=== PATIENT | male | born 1985 | race Caucasian/White ===

== ENCOUNTER 2020-06-16 11:27 | Emergency (ER) | payer SELFPAY ==
[~2020-06-16] VITALS: Ht 182.9 cm; Wt 81.6 kg
[2020-06-16] MEDS ORDERED: PANTOPRAZOLE SODIUM 40 MG TABLET.DR PO ONE ×2 (11:45→11:47)
[2020-06-16] MEDS ORDERED: LIDOCAINE VISCUS 2% 15 ML UDC MM ONE (11:45)
[2020-06-16] MEDS ORDERED: MAG HYDROX/AL HYDROX/SIMETH 30 ML LIQUID UDC PO ONE (11:45)
--- NOTE | 2020-06-16 11:45 | NUR ---
at bedside to assess pt.
--- NOTE | 2020-06-16 11:45 | NUR ---
pt is a 34yo M who came in walking into ER complaining of severe abdominal pain. pt noted with verbal complaints of pain as well as facial grimacing and moaning. A&Ox4. (R) forearm IV inserted. meds given as ordered.
[2020-06-16] MEDS ORDERED: MAG HYDROX/AL HYDROX/SIMETH 30 ML LIQUID UDC ONE (11:49)
[2020-06-16] MEDS ORDERED: LIDOCAINE VISCUS 2% 15 ML UDC ONE ×2 (11:50→12:07)
[2020-06-16] MEDS ORDERED: MORPHINE SULFATE 4 MG/1 ML DISP.SYRIN IV ONE (12:00)
[2020-06-16] MEDS ORDERED: ONDANSETRON 4 MG/2 ML VIAL IV ONE (12:00)
[2020-06-16 12:03] LABS: BASOPHILS % (AUTO) 0.3 % (0.0-2.0); EOSINOPHILS % (AUTO) 0.2 % (0.0-7.0); HEMATOCRIT 44.5 % (36.7-47.1); HEMOGLOBIN 15.5 g/dL (12.5-16.3); LYMPHOCYTES # (AUTO) 0.7 K/uL (20.0-40.0); LYMPHOCYTES % (AUTO) 6.3 % (20.5-51.5); MEAN CORPUSCULAR HEMOGLOBIN 31.3 uug (23.8-33.4); MEAN CORPUSCULAR HGB CONC 35 g/dL (32.5-36.3); MONOCYTES # (AUTO) 0.3 K/uL (2.0-10.0); MONOCYTES % (AUTO) 2.5 % (0.0-11.0); NEUTROPHILS # (AUTO) 10.3 K/uL (1.8-8.9); NEUTROPHILS % (AUTO) 90.7 % (38.5-71.5); PLATELET COUNT (AUTO) 194 K/uL (152-348); RED BLOOD CELL COUNT(AUTO) 4.95 MIL/uL (4.06-5.63); WHITE BLOOD COUNT (AUTO) 11.3 K/uL (3.6-10.2)
[2020-06-16 12:11] LABS: CREATININE 1.2 mg/dL (0.6-1.3); POTASSIUM 4.3 mmol/L (3.5-5.1)
--- NOTE | 2020-06-16 12:15 | NUR ---
pt noted with nausea and x1 episode of vomiting. IV zofran given as ordered
[2020-06-16 12:19] LABS: BILIRUBIN,DIRECT 0.3 mg/dL (0.0-0.2); BILIRUBIN,TOTAL 2.3 mg/dL (0.2-1.0); TOTAL PROTEIN, SERUM 8.1 g/dL (6.4-8.2)
--- NOTE | 2020-06-16 12:27 | NUR ---
pt verbalized reduction in pain. resting more comfortably in the gurney.
[2020-06-16] MEDS ORDERED: IV NORMAL SALINE 1000 ML BAG IV ONE (13:00)
[2020-06-16 13:25] LABS: *BILIRUBIN,URIN NEGATIVE (NEGATIVE); *BLOOD, URINE NEGATIVE (NEGATIVE); *CLARITY,URINE SLIGHTLY CLOUDY (CLEAR); *COLOR,URINE YELLOW (YELLOW); *KETONES,URINE 3+ (NEGATIVE); *UROBILINOGEN,URINE 0.2 E.U./dl (NORMAL); LEUKOCYTE ESTERASE ,URINE NEGATIVE (NEGATIVE); NITRITE, URINE NEGATIVE (NEGATIVE); UGLUCOSE NEGATIVE (NEGATIVE)
[2020-06-16] MEDS ORDERED: OMEP20TA20 PO (13:33)
[2020-06-16] MEDS ORDERED: ONDA4TAB5 PO (13:33)
[2020-06-16] MEDS ORDERED: ONDA8TAB13 PO (13:33)
--- NOTE | 2020-06-16 13:45 | NUR ---
Patient discharged to home in stable condition. verbalized feeing better and reduction in pain. Written and verbal after care instructions given. Patient verbalizes understanding of instructions. Stressed follow up or return to ER for worsening s/s. prescription given. pt ambulatory.
[2020-06-16 13:51] VITALS: BP 120/90
[2020-06-16 19:16] LABS: RBC,URINE 0-3 /HPF (0-3); WBC,URINE 0-3 /HPF (0-3)
[2020-06-16 19:17] LABS: BACTERIA,URINE MANY /HPF (NONE SEEN); SQUAMOUS EPITHELIAL CELL,UR FEW /HPF (NONE SEEN); URINE AMORPHOUS URATE MANY /HPF
[2020-06-17] MEDS ORDERED: CIPR-262 PO (11:32)
== END 2020-06-16 13:52 | disposition home or self-care (01) ==
LOC: ER 11:29
DX: R10.13 Epigastric pain (principal); K29.70 Gastritis, unspecified, without bleeding; R94.5 Abnormal results of liver function studies
CPT/HCPCS: 36415; 76705; 80048; 80076; 81001; 83690; 85025; 87086; 93005; 96361; 96374; 96375; 99284; J2270; A4663

== ENCOUNTER 2020-06-16 18:13 | Inpatient (IN) | payer SELFPAY ==
[~2020-06-16] VITALS: Ht 182.9 cm; Wt 81.0 kg
[~2020-06-16 18:13] MED LIST: OMEP20TA20 PO; ONDA4TAB5 PO; ONDA8TAB13 PO
[2020-06-16] MEDS ORDERED: ONDANSETRON 4 MG/2 ML VIAL IV ONE ×3 (18:30→22:00)
[2020-06-16] MEDS ORDERED: MORPHINE SULFATE 2 MG/1 ML DISP.SYRIN IV ONE (18:30)
[2020-06-16] MEDS ORDERED: IV NORMAL SALINE 1000 ML BAG IV ONE (18:30)
--- NOTE | 2020-06-16 18:35 | NUR ---
pt is a 34M complaining of severe abdominal pain. pt was here earlier during the day and had verbalized relief of pain and was discharged. however, pt called and stated the pain is back and its severe, pt was then told to return to the ER. (L) forearm 20g IV placed. given IV morphine and Zofran as ordered
[2020-06-16] MEDS ORDERED: MORPHINE SULFATE 4 MG/1 ML DISP.SYRIN ONE (18:36)
[2020-06-16] MEDS ORDERED: ONDANSETRON 4 MG/2 ML VIAL ONE ×2 (18:37→18:55)
--- NOTE | 2020-06-16 18:42 | NUR ---
pt taken down to CT at this time
[2020-06-16] MEDS ORDERED: HYDROMORPHONE 1 MG/1 ML DISP.SYRIN IV ONE ×2 (18:45→22:00)
[2020-06-16 18:47] LABS: BASOPHILS % (AUTO) 0.2 % (0.0-2.0); EOSINOPHILS % (AUTO) 0.1 % (0.0-7.0); HEMATOCRIT 43.1 % (36.7-47.1); HEMOGLOBIN 15.1 g/dL (12.5-16.3); LYMPHOCYTES # (AUTO) 0.8 K/uL (20.0-40.0); LYMPHOCYTES % (AUTO) 7.2 % (20.5-51.5); MEAN CORPUSCULAR HGB CONC 35 g/dL (32.5-36.3); MEAN CORPUSCULAR VOLUME 88.1 fL (73.0-96.2); MONOCYTES # (AUTO) 0.3 K/uL (2.0-10.0); NEUTROPHILS # (AUTO) 10.2 K/uL (1.8-8.9); NEUTROPHILS % (AUTO) 89.5 % (38.5-71.5); PLATELET COUNT (AUTO) 212 K/uL (152-348); RED BLOOD CELL COUNT(AUTO) 4.89 MIL/uL (4.06-5.63); WHITE BLOOD COUNT (AUTO) 11.4 K/uL (3.6-10.2)
[2020-06-16] MEDS ORDERED: HYDROMORPHONE 1 MG/1 ML DISP.SYRIN ONE ×2 (18:55→21:59)
--- NOTE | 2020-06-16 18:55 | NUR ---
pt returned frm CT scan. Dr. Garza ordered IV Dilaudid and IV ZOfran. informed MD that pt just got his IV Morphine and IV ZOfran ordered by Dr. Damian. Per , okay to give
[2020-06-16 18:59] LABS: CREATININE 1.1 mg/dL (0.6-1.3)
--- NOTE | 2020-06-16 19:04 | NUR ---
pt endorsed to bottle assembler RN. MD currently at bedside explaining CT results. VSS
--- NOTE | 2020-06-16 19:05 | NUR ---
Received report from Day shift nurse. Patient currenty resting comfortably on the gurney, no complaints of pain, no signs of distress. Sen by Dr. Garza and advised patient that he is going to be admitted for observation. Patient verbalized understanding.
[2020-06-16] MEDS ORDERED: ACETAMINOPHEN 650 MG SUPP.RECT RC PRN (21:30)
[2020-06-16] MEDS ORDERED: ONDANSETRON 4 MG/2 ML VIAL IV PRN (21:30)
[2020-06-16 22:00] VITALS: BP 109/58
[2020-06-16] MEDS ORDERED: PIPERACILLIN SODIUM/TAZOBACTAM 3.375 G in IV DEXTROSE 5% 50 ML IV SCH (22:00)
--- NOTE | 2020-06-16 22:35 | NUR ---
Patient Tranfered via gurney to 3rd floor Medical surgical status room 325, care of SIRI Angeles. Full hand off report given, Attending physician Dr. Nathan Banuelos. All belongings documented and transferred with the patient. Patient in stable condition at the time of transer, all VS stable, no SOB or signs of distress.
[2020-06-16] MEDS: IV D5 1/2 NS 1000 ML 1,000 ML IV PRN (22:45)
[2020-06-16] MEDS ORDERED: PIPERACILLIN/TAZOBACTAM/D5W 100 ML IV ONE (23:05)
[2020-06-16] MEDS ORDERED: PIPERACILLIN/TAZOBACTAM/D5W 50 ML IV ONE (23:08)
[2020-06-16] MEDS: PIPERACILLIN SODIUM/TAZOBACTAM 3.375 G in IV DEXTROSE 5% 50 ML IV SCH (23:22)
[2020-06-17] MEDS: MORPHINE SULFATE 2 MG/1 ML DISP.SYRIN IV PRN ×2 (01:16→12:43)
[2020-06-17 04:21] VITALS: BP 108/53
[2020-06-17] MEDS: PIPERACILLIN SODIUM/TAZOBACTAM 3.375 G in IV DEXTROSE 5% 50 ML IV SCH (05:38)
--- NOTE | 2020-06-17 06:49 | NUR ---
Pt slept throughout the night. Admitted at 2230H. Assessment complete and all belongings accounted for. Denies pain or SOB at this time. IV site patent. Maintained NPO status. Bed is locked and in lowest position, no other issues or concerns at this time. Will endorse to day shift
[2020-06-17 07:09] LABS: BASOPHILS # (AUTO) 0.1 K/uL (0.0-8.0); BASOPHILS % (AUTO) 0.7 % (0.0-2.0); EOSINOPHILS # (AUTO) 0.1 K/uL (0.0-0.7); EOSINOPHILS % (AUTO) 0.7 % (0.0-7.0); HEMATOCRIT 37.8 % (36.7-47.1); HEMOGLOBIN 13.3 g/dL (12.5-16.3); LYMPHOCYTES # (AUTO) 1.6 K/uL (20.0-40.0); LYMPHOCYTES % (AUTO) 18.4 % (20.5-51.5); MEAN CORPUSCULAR HEMOGLOBIN 31.4 uug (23.8-33.4); MEAN CORPUSCULAR HGB CONC 35 g/dL (32.5-36.3); MEAN CORPUSCULAR VOLUME 89.4 fL (73.0-96.2); MONOCYTES # (AUTO) 0.6 K/uL (2.0-10.0); MONOCYTES % (AUTO) 6.4 % (0.0-11.0); NEUTROPHILS # (AUTO) 6.5 K/uL (1.8-8.9); NEUTROPHILS % (AUTO) 73.8 % (38.5-71.5); PLATELET COUNT (AUTO) 181 K/uL (152-348); RED BLOOD CELL COUNT(AUTO) 4.23 MIL/uL (4.06-5.63); WHITE BLOOD COUNT (AUTO) 8.8 K/uL (3.6-10.2)
[2020-06-17 07:38] LABS: BILIRUBIN,TOTAL 2.4 mg/dL (0.2-1.0); CREATININE 1.5 mg/dL (0.6-1.3); PHOSPHOROUS 3.8 mg/dL (2.5-4.9); POTASSIUM 3.8 mmol/L (3.5-5.1)
[2020-06-17] MEDS ORDERED: PANTOPRAZOLE SODIUM 40 MG VIAL IV SCH (09:00)
[2020-06-17] MEDS ORDERED: DIATR MEGLU/DIATRIZOATE SODIUM 30 ML BOTTLE ONE (09:12)
[2020-06-17] MEDS ORDERED: CIPR-262 PO (11:32)
[2020-06-17 12:48] VITALS: BP 108/48
[2020-06-17] MEDS: IV D5 1/2 NS 1000 ML 1,000 ML IV PRN (13:37)
[2020-06-17] MEDS ORDERED: PIPERACILLIN SODIUM/TAZOBACTAM 3.37 G in IV DEXTROSE 5% 100 ML IV SCH (14:00)
--- NOTE | 2020-06-17 14:41 | NUR ---
SW Consult: Water Vessel Captain received a consult requested for 34-year-old male for possible substance history. Patients current diagnosis Unspecified Intestinal Obstruction. Patient appeared alert and oriented x4. Patient presented with euthymic mood. However, patient did appear guarded with his answers while this SW was conducting the assessment. Patient stated he was brought to the hospital due to complaints of abdominal pain. Patient stated that he is single and does not have any family. Patient expressed that his family resides in [place]. 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 Patient lives at home located [address] [place] [address]; ([phone]). He stated that he lives alone. Patient expressed that he moved to the 6 years ago. Patient stated that he is in the process of moving and within the next couple of weeks he will be moving into a different house. Patient expressed that he is able to manage his ADLs independently. Patient denies suicidal or homicidal ideation. Patient did not have any concerns at this time and stated that he is satisfied with his treatment and that the staff is has been helpful with his treatment here at the hospital. This SW conducted brief substance abuse intervention. Patient shared that he doesnt drink and just drinks occasionally. He expressed that he vapes and is in the process of quitting. Patient denied any substance history. This SW provided substance abuse resources: [facility] ([phone]), [facility]; ([phone]), [facility]; ([phone]), [facility] ([phone]), [facility]; ([phone]), [facility]; ([phone]).
[2020-06-17 16:20] VITALS: BP 100/44
--- NOTE | 2020-06-17 19:25 | NUR ---
pt discharged 06/17/20 5:00 PM to home with all belongings. all paperwork signed and in chart with copy given to the pt. medications list sent to the pharmacy. all medications given as ordered. pt left in stable condition and was picked up by by family member. IV and name band removed. discharge and teaching completed.
== END 2020-06-17 17:30 | disposition home or self-care (01) | DRG 393 ==
LOC: ER 18:13 → MEDSURG3 22:11
PROVIDERS: ADMIT Nurse Practitioner Acute Care; ATTEND Nurse Practitioner Acute Care
DX: K46.0 Unspecified abdominal hernia with obstruction, without gangrene (principal); N17.0 Acute kidney failure with tubular necrosis; R18.8 Other ascites; E83.59 Other disorders of calcium metabolism; D72.829 Elevated white blood cell count, unspecified; K44.9 Diaphragmatic hernia without obstruction or gangrene; Z20.822 Contact with and (suspected) exposure to COVID-19
CPT/HCPCS: 36415; 74250; 83735; 84100; 85025; A4663; C9113; G0378; J1170; J2270; J2405; J2543; J3490; J7060; Q9963